=== PATIENT | female | born 1975 | race Caucasian/White ===

== ENCOUNTER 2016-12-24 06:49 | Emergency (ER) | payer OTHER ==
[~2016-12-24] VITALS: Wt 63.6 kg
[~2016-12-24 06:49] MED LIST: HYDR-906 PO; NAPR-260 PO
--- NOTE | 2016-12-24 07:12 | ERD ---
ER Documentation Chief Complaint Date/Time DATE: 12/24/16 TIME: 07:09 Chief Complaint pelvic pain w dysuria HPI This is a 41-year-old female presenting to emergency department with dysuria and pelvic pain starting earlier today. Patient states symptoms started 4 hours prior to arrival. Patient has pain and burning with urination and also states she has hematuria. Patient also reports urinary frequency and urgency. Patient states she has bilateral lower pelvic pain that started with dysuria. No fevers or chills. No nausea or vomiting. No diarrhea or constipation. No back or flank pain. No chest pain or abdominal pain. Last menstrual period 12/10. ROS All systems reviewed and are negative except as per history of present illness. Medications Home Meds Active Scripts Phenazopyridine Hcl* (Pyridium*) 100 Mg Tab, 100 MG PO TID Y for URINARY PAIN, # 8 TAB Prov:LUCAS ORDONEZ NP 12/24/16 Cephalexin* (Keflex*) 500 Mg Capsule, 500 MG PO BID for 7 Days, CAP Prov:LUCAS ORDONEZ NP 12/24/16 Hydrocodone/Acetaminophen ([place] 5-325 Tablet) 1 Each Tablet, 1 TAB PO Q6H Y for PAIN, #7 TAB Prov:MIGUEL MICHAELS PA-C 12/29/15 Naproxen* (Naprosyn*) 500 Mg Tablet, 500 MG PO BID Y for PAIN AND/OR INFLAMMATION, #30 TAB Prov:MIGUEL MICHAELS PA-C 12/29/15 Reported Medications [None] No Conflict Check 03/01/15 Allergies Allergies: Coded Allergies: No Known Allergy (Unverified , 12/29/15) PMhx/Soc History of Surgery: Yes (TUBAL LIGATION) Anesthesia Reaction: No Hx Neurological Disorder: No Hx Respiratory Disorders: No Hx Cardiac Disorders: No Hx Psychiatric Problems: No Hx Miscellaneous Medical Probl: Yes (gastritis, hemorrhoids.) Hx Alcohol Use: No Hx Substance Use: No Hx Tobacco Use: No Physical Exam Vitals Vital Signs Date Time Temp Pulse Resp B/P Pulse Ox O2 Delivery O2 Flow Rate FiO2 12/24/16 09:03 98.4 72 16 114/68 99 Room Air 12/24/16 06:54 97.6 77 20 114/68 98 Physical Exam Const: No acute distress, alert Head: Atraumatic Eyes: Normal Conjunctiva ENT: Normal External Ears, Nose and Mouth. Neck: Full range of motion..~ No meningismus. Resp: Clear to auscultation bilaterally Cardio: Regular rate and rhythm, no murmurs Abd: Soft, non distended. Normal bowel sounds, bilateral lower pelvic tenderness to palpation. Skin: No petechiae or rashes Back: No midline or flank tenderness Ext: No cyanosis, or edema Neur: Awake and alert Psych: Normal Mood and Affect Results 24 hrs Laboratory Tests Test 12/24/16 07:00 Urine Color RED Urine Clarity CLOUDY Urine pH 6.0 Urine Specific [place] 1.005 Urine Ketones NEGATIVEmg/dL Urine Nitrite NEGATIVEmg/dL Urine Bilirubin NEGATIVEmg/dL Urine Urobilinogen NEGATIVEmg/dL Urine Leukocyte Esterase 3+Jovanni/ul Urine Microscopic RBC > 182/HPF Urine Microscopic WBC > 182/HPF Urine Bacteria FEW/HPF Urine Yeast (Budding) FEW/HPF Urine Hemoglobin 2+mg/dL Urine Glucose NEGATIVEmg/dL Urine Total Protein 2+mg/dl Current Medications Medications (Trade) Dose Ordered Sig/Faiza Route PRN Reason Start Time Stop Time Status Last Admin Dose Admin Ceftriaxone Sodium (Rocephin) 1 gm ONCE ONCE IM 12/24/16 08:00 12/24/16 08:01 DC 12/24/16 08:21 Lidocaine (Xylocaine 1% (Mdv) 20 ml) 20 ml ONCE ONCE SC 12/24/16 08:00 12/24/16 08:01 DC 12/24/16 08:21 Fluconazole (Diflucan) 150 mg ONCE ONCE PO 12/24/16 08:00 12/24/16 08:01 DC 12/24/16 08:22 Procedures/MDM MDM: This is a 41-year-old female presenting to emergency department with dysuria, hematuria and pelvic pain starting earlier today. Upon arrival vital signs are stable. Patient is afebrile. UA shows 2+ blood, 3+ leukocyte esterase, greater than 182 white blood cells greater than 182 right blood cells , few bacteria and few yeast. Negative glucose, ketones, bilirubin and nitrite. Urine is negative. Patient is afebrile upon arrival to ED and heart rate is normal. No tachycardia. No CVA tenderness. Patient given Rocephin 1 mg IM and Diflucan 150 mg p.o. Patient is alert and stable throughout ED visit. Appears in no acute distress. Vital signs remained stable. Low suspicion for pyelonephritis or sepsis. Patient likely has UTI. Patient is appropriate for outpatient management will be given prescription for Keflex 500 mg and Pyridium. Instructed patient to follow-up with primary care provider in the next 2-3 days for reassessment. Return to ED for any high fever , chest pain, difficulty breathing, shortness breath, wheezing, vomiting, diarrhea, abdominal pain or any new or worsening symptoms. Patient verbalizes understanding. All questions answered at discharge. Azerbaijani translation used during this encounter. Departure Diagnosis: Primary Impression: Dysuria Condition: Stable LUCAS ORDONEZ NP Dec 24, 2016 07:11
[2016-12-24 07:56] LABS: ADD UMIC YES; UR ASCORBIC ACID NEGATIVE (NEGATIVE); UR BACTERIA FEW /HPF (NONE SEEN); UR BILIRUBIN (Dip) NEGATIVE (NEGATIVE); UR BLOOD (Dip) 2+ mg/dL (NEGATIVE); UR BUDDING YEAST FEW /HPF (NONE SEEN); UR CLARITY CLOUDY (CLEAR); UR COLOR RED (YELLOW); UR GLUCOSE (Dip) NEGATIVE (NEGATIVE); UR KETONES (Dip) NEGATIVE (NEGATIVE); UR LEUKOCYTE ESTERASE (Dip) 3+ Leu/ul (NEGATIVE); UR NITRITE (Dip) NEGATIVE (NEGATIVE); UR RBC > 182 /HPF (0-5); UR SPECIFIC GRAVITY (Dip) 1.005 (1.003-1.030); UR TOTAL PROTEIN (Dip) 2+ mg/dl (NEGATIVE); UR UROBILINOGEN (Dip) NEGATIVE (NEGATIVE); UR WBC CLUMPS MANY /HPF (NONE SEEN)
[2016-12-24] MEDS ORDERED: CEFTRIAXONE 1 GM INJ IM ONE (08:00)
[2016-12-24] MEDS ORDERED: LIDOCAINE 1% (MDV) 20 ML INJ SC ONE (08:00)
[2016-12-24] MEDS ORDERED: FLUCONAZOLE 150 MG TAB PO ONE (08:00)
[2016-12-24] MEDS ORDERED: CEPH-443 PO (08:56)
[2016-12-24] MEDS ORDERED: PHEN-537 PO (08:56)
[2016-12-24 09:03] VITALS: BP 114/68; PULSE 72; RESP 16; TEMP 98.4
== END 2016-12-24 09:09 | disposition home or self-care (01) ==
LOC: FTE 06:49
DX: R30.0 Dysuria (principal)
CPT/HCPCS: 81001; 96372; J0696; Z7502; Z7610

== ENCOUNTER 2018-05-06 21:05 | Emergency (ER) | payer OTHER ==
[~2018-05-06] VITALS: Ht 142.2 cm; Wt 54.0 kg
[~2018-05-06 21:05] MED LIST changes: +CEPH-443 PO; +HYDR-4011 PO; -HYDR-906 PO; -NAPR-260 PO; +NAPR-985 PO; +PHEN-537 PO
[2018-05-06 21:12] VITALS: BP 122/57; PULSE 77; RESP 18; Ht 142.2 cm; Wt 54.0 kg
--- NOTE | 2018-05-07 02:27 | ERD ---
ER Documentation Chief Complaint Chief Complaint pain left shoulder/left upper back x 1 week HPI 43-year-old female presents for left shoulder pain times 1 week. There is also associated left upper back pain. The pain is noted to be 6 out of 10. Patient tried Naprosyn and Tylenol at home with mild relief. She denies abdominal pain, nausea, vomiting. Also denies fevers or chills. ROS All systems reviewed and are negative except as per history of present illness. Medications Home Meds Active Scripts Phenazopyridine Hcl* (Pyridium*) 100 Mg Tab, 100 MG PO TID PRN for URINARY PAIN, #8 TAB Prov:LUCAS ORDONEZ NP 12/24/16 Cephalexin* (Keflex*) 500 Mg Capsule, 500 MG PO BID for 7 Days, CAP Prov:LUCAS ORDONEZ NP 12/24/16 Hydrocodone/Acetaminophen ([place] 5-325 Tablet) 1 Each Tablet, 1 TAB PO Q6H PRN for PAIN, #7 TAB Prov:MIGUEL MICHAELS PA-C 12/29/15 Naproxen* (Naprosyn*) 500 Mg Tablet, 500 MG PO BID PRN for PAIN AND/OR INFLAMMATION, #30 TAB Prov:MIGUEL MICHAELS PA-C 12/29/15 Reported Medications [None] No Conflict Check 03/01/15 Allergies Allergies: Coded Allergies: No Known Allergy (Unverified , 05/07/18) PMhx/Soc History of Surgery: Yes (c section) Anesthesia Reaction: No Hx Neurological Disorder: No Hx Respiratory Disorders: No Hx Cardiac Disorders: No Hx Psychiatric Problems: No Hx Miscellaneous Medical Probl: Yes (gastritis, hemorrhoids.) Hx Alcohol Use: No Hx Substance Use: No Hx Tobacco Use: No Smoking Status: Never smoker Physical Exam Vitals Vital Signs Date Temp Pulse Resp B/P (MAP) Pulse Ox O2 O2 Flow FiO2 Time Delivery Rate 05/06/18 98.2 77 18 122/57 97 21:12 (78) Physical Exam Const: No acute distress Resp: Clear to auscultation bilaterally Cardio: Regular rate and rhythm, no murmurs, bilateral radial and dorsalis pedis pulse intact Skin: No petechiae or rashes Back: No midline or flank tenderness, no midline tenderness Ext: Left shoulder with full range of motion although there is pain with motion. There is pain to palpation over the left shoulder posterior side. There is 5 out of 5 muscle strength bilateral upper and lower extremity. Neur: Awake and alert, bilateral upper and lower extremity sensation intact Psych: Normal Mood and Affect Result Diagram: 05/07/18 0045 05/07/18 0045 Results 24 hrs Laboratory Tests Test 05/07/18 00:45 White Blood Count 7.5 10^3/ul Red Blood Count 5.16 10^6/ul Hemoglobin 13.3 g/dl Hematocrit 42.1 % Mean Corpuscular Volume 81.6 fl Mean Corpuscular Hemoglobin 25.8 pg Mean Corpuscular Hemoglobin Concent 31.6 g/dl Red Cell Distribution Width 12.9 % Platelet Count 308 10^3/UL Mean Platelet Volume 10.7 fl Immature Granulocytes % 0.300 % Neutrophils % 50.6 % Lymphocytes % 39.5 % Monocytes % 5.3 % Eosinophils % 3.6 % Basophils % 0.7 % Nucleated Red Blood Cells % 0.0 /100WBC Immature Granulocytes # 0.020 10^3/ul Neutrophils # 3.8 10^3/ul Lymphocytes # 3.0 10^3/ul Monocytes # 0.4 10^3/ul Eosinophils # 0.3 10^3/ul Basophils # 0.1 10^3/ul Nucleated Red Blood Cells # 0.0 10^3/ul Urine Color YELLOW Urine Clarity SLIGHTLY CLOUDY Urine pH 5.0 Urine Specific [place] 1.019 Urine Ketones NEGATIVE mg/dL Urine Nitrite NEGATIVE mg/dL Urine Bilirubin NEGATIVE mg/dL Urine Urobilinogen NEGATIVE mg/dL Urine Leukocyte Esterase NEGATIVE Jovanni/ul Urine Microscopic RBC 5 /HPF Urine Microscopic WBC 1 /HPF Urine Squamous Epithelial Cells FEW /HPF Urine Bacteria FEW /HPF Urine Mucus FEW /HPF Urine Hemoglobin NEGATIVE mg/dL Urine Glucose NEGATIVE mg/dL Urine Total Protein NEGATIVE mg/dl Sodium Level 145 mmol/L Potassium Level 4.2 mmol/L Chloride Level 104 mmol/L Carbon Dioxide Level 29 mmol/L Anion Gap 12 Blood Urea Nitrogen 12 mg/dl Creatinine 0.75 mg/dl Est Glomerular Filtrat Rate mL/min > 60 mL/min Glucose Level 102 mg/dl Calcium Level 9.8 mg/dl Total Bilirubin 0.2 mg/dl Direct Bilirubin 0.00 mg/dl Indirect Bilirubin 0.2 mg/dl Aspartate Amino Transf (AST/SGOT) 17 IU/L Alanine Aminotransferase (ALT/SGPT) 13 IU/L Alkaline Phosphatase 70 IU/L Total Protein 7.6 g/dl Albumin 4.9 g/dl Globulin 2.70 g/dl Albumin/Globulin Ratio 1.81 Procedures/MDM Medical Decision Making: Differential diagnosis includes but not limited to shoulder ligamentous sprain, dislocation, fracture. Patient appears well on physical examination. Examination of the left shoulder was benign. There is low suspicion for fracture or dislocation. CBC showed no anemia, no elevated WBC to suggest infection. CMP showed mildly elevated sodium of 145, otherwise electrolytes normal. Renal function normal. Liver function normal. UA showed no infection or hematuria. Left shoulder x-ray unremarkable Left rib x-ray Unremarkable Patient may have a shoulder sprain. Patient states that she has pain medication at home which she can take. Patient advised to follow up with PCP in 1-2 days. Patient advised to return to ED for new or worsening symptoms. Patient stable on discharge from the ED. Disclaimer: Inadvertent spelling and grammatical errors are likely due to EHR/dictation software use and do not reflect on the overall quality of patient care. Also, please note that the electronic time recorded on this note does not necessarily reflect the actual time of the patient encounter. Departure Diagnosis: Primary Impression: Shoulder pain Additional Impression: Rib pain Condition: Fair Patient Instructions: Rib Contusion, Shoulder Contusion Referrals: [facility] YOU HAVE RECEIVED A MEDICAL SCREENING EXAM AND THE RESULTS INDICATE THAT YOU DO NOT HAVE A CONDITION THAT REQUIRES URGENT TREATMENT IN THE EMERGENCY DEPARTMENT. FURTHER EVALUATION AND TREATMENT OF YOUR CONDITION CAN WAIT UNTIL YOU ARE SEEN IN YOUR DOCTORS OFFICE WITHIN THE NEXT 1-2 DAYS. IT IS YOUR RESPONSIBILITY TO MAKE AN APPOINTMENT FOR FOLOW-UP CARE. IF YOU HAVE A PRIMARY DOCTOR --you should call your primary doctor and schedule an appointment IF YOU DO NOT HAVE A PRIMARY DOCTOR YOU CAN CALL OUR PHYSICIAN REFERRAL HOTLINE AT IF YOU CAN NOT AFFORD TO SEE A PHYSICIAN YOU CAN CHOSE FROM THE FOLLOWING [facility] [address] [facility] [address] [facility]. [facility] [address] [facility] [address] [facility]. [facility] [address] [facility]. [facility] [address] Additional Instructions: Llame al doctor MAANA y ken rui [place] PARA DENTRO DE 1-2 BALDW[place].Dgale a la secretaria que nosotros le instruimos hacer esta garland.Avise o llame si mendez condicin se empeora antes de la garland. Regresa aqui si peor o no mejor. DIRK WHEATLEY DO May 07, 2018 02:27
== END 2018-05-07 01:59 | disposition home or self-care (01) ==
LOC: FTE 21:05
DX: M25.512 Pain in left shoulder (principal); R07.81 Pleurodynia
CPT/HCPCS: 36415; 71100; 73030; 80053; 81001; 85025; Z7502; 81003